=== PATIENT | female | born 1965 ===

== ENCOUNTER 2019-10-17 11:45 | Inpatient (IN) | payer OTHER ==
[~2019-10-17] VITALS: Ht 175.3 cm; Wt 81.6 kg
[2019-10-17] MEDS ORDERED: HORIZANT600 MG PO (14:08)
[2019-10-17] MEDS ORDERED: PRILOSEC OTC20 MG PO (14:08)
[2019-10-17] MEDS ORDERED: CLONAZEPAM0.5 MG PO (14:09)
[2019-10-17] MEDS ORDERED: PERCOCET 5-3251 EACH PO (14:09)
[2019-10-17] MEDS ORDERED: OLANZAPINE7.5 MG PO (14:10)
[2019-10-17] MEDS ORDERED: ATORVASTATIN CA10 MG PO (14:11)
[2019-10-17] MEDS ORDERED: METFORMIN HCL500 M3 PO (14:12)
[2019-10-23] MEDS ORDERED: MEDROLPACK PO (16:15)
[2019-10-23] MEDS ORDERED: CLONAZEPAM0.5 MG PO (16:15)
[2019-10-23] MEDS ORDERED: PERCOCET 5-3251 EACH PO (16:15)
[2019-10-23] MEDS ORDERED: COLACE100 MG PO (16:15)
== END 2019-10-24 14:02 | disposition home or self-care (01) | DRG 472 ==
LOC: ADM 11:45 → EDSTATUS 11:45 → SURH 10-23 04:55 → O/R 10-23 04:55 → EDBD 10-23 11:45 → SURH 10-23 11:45
PROVIDERS: ADMIT Orthopaedic Surgery Orthopaedic Surgery of the Spine
PROC: 0RG2070 Fusion of 2 or more Cervical Vertebral Joints with Autologous Tissue Substitute, Anterior Approach, Anterior Column, Open Approach (ICD-10-PCS; 2019-10-23)
PROC: 0RT30ZZ Resection of Cervical Vertebral Disc, Open Approach (ICD-10-PCS; 2019-10-23)
PROC: 07DS3ZZ Extraction of Vertebral Bone Marrow, Percutaneous Approach (ICD-10-PCS; 2019-10-23)
PROC: 0RG20A0 Fusion of 2 or more Cervical Vertebral Joints with Interbody Fusion Device, Anterior Approach, Anterior Column, Open Approach (ICD-10-PCS; principal; 2019-10-23 17:30)
DX: M47.12 Other spondylosis with myelopathy, cervical region (principal); M50.021 Cervical disc disorder at C4-C5 level with myelopathy; M50.023 Cervical disc disorder at C6-C7 level with myelopathy; M50.322 Other cervical disc degeneration at C5-C6 level